=== PATIENT | female | born 1975 | race Caucasian/White ===

== ENCOUNTER 2018-06-01 18:42 | Inpatient (IN) ==
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
[2018-06-01 19:59] LABS: Amphetamine Screen,Urine Neg (Neg); Barbiturate Screen,Urine Neg (Neg); Cannabinoid Screen,Urine Pos (Neg); Cocaine Screen,Urine Pos (Neg)
[2018-06-01 20:01] LABS: Opiate Screen,Urine Neg (Neg)
[2018-06-01] MEDS ORDERED: LORazepam 1 MG Tablet PO PRN (22:25)
[2018-06-01] MEDS ORDERED: Acetaminophen 325 MG Tablet PO PRN (22:25)
[2018-06-01] MEDS ORDERED: Aluminum/Magnesium/Simethacone Susp 30 ML UDC PO PRN (22:25)
[2018-06-02 08:45] LABS: Calcium 8.5 mg/dL (8.5-10.1); Carbon Dioxide 27.7 meq/L (21.0-32.0); Potassium 4.2 meq/L (3.5-5.1)
[2018-06-02 08:49] LABS: Chol/HDL Ratio 2.88 Ratio; HDL Cholesterol 55.8 mg/dL (40.0-60.0)
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
[2018-06-02] MEDS ORDERED: Melatonin 5 MG Tablet PO PRN (10:20)
[2018-06-02 17:34] VITALS: RESP 16
[2018-06-02] MEDS ORDERED: OLANZapine 10 MG Tablet PO SCH (21:00)
[2018-06-03 05:44] VITALS: BP 149/60; PULSE 51; TEMP 98.1; O2SAT 100
--- NOTE | 2018-06-03 13:23 | ECG ---
Date Performed: 06/02/2018 Time Performed: 12:32:58 PTAGE: 42 years EKG: SINUS BRADYCARDIA BORDERLINE ECG NO PREVIOUS TRACING DOCTOR: Aron Starks Interpretating Date/Time 06/03/2018 13:22:15
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
== END 2018-06-03 15:40 | disposition left against medical advice (07) ==
LOC: NEPD 18:42 → H270 21:00 → NEDA 21:32 → H270 21:49
PROVIDERS: ADMIT Psychiatry & Neurology Psychiatry; ATTEND Psychiatry & Neurology Psychiatry